=== PATIENT | male | born 1970 | race Hispanic/Latino ===

== ENCOUNTER 2023-01-19 11:27 | Emergency (ER) | payer SELFPAY ==
[2023-01-19] MEDS ORDERED: Sodium Chloride 0.9% 10 ML Syringe FLUSH PRN (11:36)
[2023-01-19] MEDS ORDERED: Sodium Chloride 0.9% 2.5 ML Syringe FLUSH PRN (11:36)
[2023-01-19] MEDS ORDERED: fentaNYL 50 MCG/ML SDV IVPUSH ONE (11:36)
[2023-01-19] MEDS ORDERED: Ondansetron 4 MG/2 ML SDV IVPUSH ONE ×2 (11:36→13:55)
[2023-01-19 11:49] LABS: BASOPHILS ABSOLUTE AUTO 0.07 K/uL (0.00-0.20); BASOPHILS PERCENT AUTO 0.9 % (0.0-1.0); EOSINOPHILS ABSOLUTE AUTO 0.11 K/uL (0.00-0.45); EOSINOPHILS PERCENT AUTO 1.5 % (0.0-6.0); HEMATOCRIT 45.2 % (42.0-52.0); HEMOGLOBIN 16.2 g/dL (14.0-18.0); IMMATURE GRAN ABSOLUTE AUTO 0.03 K/uL (0.00-0.05); IMMATURE GRAN PERCENT AUTO 0.4 % (0.0-0.4); LYMPHOCYTES ABSOLUTE AUTO 1.51 K/uL (1.00-4.80); LYMPHOCYTES PERCENT AUTO 20.3 % (24.0-44.0); MEAN CORPUSCULAR HEMOGLOBIN 33.9 pg (28.0-32.0); MEAN CORPUSCULAR HGB CONC 35.8 g/dL (32.0-36.0); MEAN CORPUSCULAR VOLUME 94.6 fL (83.0-99.0); MONOCYTES ABSOLUTE AUTO 0.59 K/uL (0.00-0.80); MONOCYTES PERCENT AUTO 7.9 % (0.0-8.0); NEUTROPHILS ABSOLUTE AUTO 5.13 K/uL (1.80-7.70); PLATELET COUNT,PLT 299 K/uL (150-400); RED BLOOD CELL COUNT 4.78 M/uL (4.52-5.90); WHITE BLOOD CELL COUNT,WBC 7.44 K/uL (3.9-11.3)
[2023-01-19 12:00] LABS: ALBUMIN 3.8 g/dL (3.4-5.0); BILIRUBIN TOTAL 1.7 mg/dL (0.2-1.0); CALCIUM 8.3 mg/dL (8.5-10.1); CREATININE 1.2 mg/dL (0.8-1.3); EST CRCL DRUG DOSING (CG) 66.56 mL/min; PROTEIN TOTAL,TP 7.5 g/dL (6.4-8.2)
[2023-01-19 12:02] LABS: HEMOGLOBIN A1C 6.3 %
[2023-01-19] MEDS ORDERED: Lidocaine 1% 5 ML VIAL INJECT ONE (12:46)
[2023-01-19] MEDS ORDERED: Ketamine 500 mg/10 ML MDV IV ONE ×2 (12:46→14:11)
[2023-01-19 13:17] LABS: INR 1.02 (0.86-1.11); PTT,PARTIAL THROMBOPLSTIN TIME 28.1 SEC (23.9-30.7)
[2023-01-19] MEDS ORDERED: Sodium Chloride 0.9% 1,000 ML IV ONE (13:55)
[2023-01-19] MEDS ORDERED: Acetaminophen/oxyCODONE 325-5 MG Tab PO STA (16:40)
== END 2023-01-19 16:49 ==
LOC: MW.ED 11:27
DX: S82.392A Other fracture of lower end of left tibia, initial encounter for closed fracture (principal); S82.832A Other fracture of upper and lower end of left fibula, initial encounter for closed fracture; R73.03 Prediabetes; W00.9XXA Unspecified fall due to ice and snow, initial encounter
CPT/HCPCS: 27781; 27825; 36415; 73590; 73600; 80053; 83036; 85025; 85610; 85730; 96374; 96375; 99285; A9270; J2405; J3010; J3490; J7030; 27810; 99284